=== PATIENT | female | born 2000 | race Caucasian/White ===

== ENCOUNTER 2023-11-15 04:34 | Emergency (ER) | payer OTHER | END 2023-11-15 05:24 | disposition home or self-care (01) | LOC: EDBD 04:34 → CSHERS 04:34 | DX: S81.012A Laceration without foreign body, left knee, initial encounter (principal); S81.011A Laceration without foreign body, right knee, initial encounter; S81.812A Laceration without foreign body, left lower leg, initial encounter; S81.811A Laceration without foreign body, right lower leg, initial encounter; W25.XXXA Contact with sharp glass, initial encounter | CPT/HCPCS: 99283 ==